=== PATIENT | female | born 1985 | race Two or more races ===

== ENCOUNTER 2025-06-21 10:26 | Outpatient (CLI) | payer OTHER, MEDICAID, SELFPAY ==
[2025-06-21] VITALS (33 sets, daily range): BP systolic 110–151; BP diastolic 58–94; PULSE 74–117; RESP 16–99; TEMP 37.1; O2SAT 91–100; BMI 40.1
--- NOTE | 2025-06-21 10:58 | XR_ITS ---
Examination: Biophysical profile, ultrasound Date and time of exam: June 21, 2025, 1135 hours INDICATIONS: Diagnosis hypertension, decreased movement today Technique: Multiple transabdominal sonographic images of the pelvis abdomen obtained. Attention is directed to the breathing movement, gross body movement, amniotic fluid volume and tone. Findings: Amniotic fluid index 11.2 cm Total biophysical profile is 8 of 8. breathing movement is 2. Gross body movement is 2. tone is 2. Qualitative amniotic fluid volume is 2 Impression: Biophysical profile is 8 of 8.
[2025-06-21 11:35] LABS: Collection Type, Urine Clean Catch
[2025-06-21 11:41] LABS: Bilirubin,Urine Negative (Negative); Blood,Urine Negative (Negative); Clarity,Urine Clear (Clear/Hazy); Color,Urine Lt-Yellow (Lt Yel-Yel); Glucose, Urine Negative (Negative); Ketones,Urine Negative (Negative); Leukocyte Esterase,Urine Negative (Negative); Nitrite,Urine Negative (Negative); PH,Urine 6.0 (5.0-7.0); Protein,Urine Negative (Neg - Trace); RBC,Urine 1 /hpf (0-3); Specific Gravity,Urine 1.005 (1.001-1.035); Squamous Epithelial Cell,Urine 2 /hpf (0-5); Urobilinogen,Urine Negative mg/dL (0.0-1.0); WBC,Urine < 1 /hpf (0-5)
[2025-06-21 11:54] LABS: Creatinine,Random Urine 25 mg/dL (30-125); Protein Total, Random Urine < 6 mg/dL (1-14)
[2025-06-21 12:37] LABS: INR 1.0 (0.9-1.3); Partial Thromboplastin Time 26.8 Seconds (22.0-36.0); Prothrombin Time 10.6 Seconds (9.0-12.2)
[2025-06-21 12:48] LABS: Fibrinogen 637 mg/dL (175-375)
[2025-06-21 12:49] LABS: Alanine Aminotransferase 10 U/L (10-49); Albumin, Serum 4.1 gm/dL (3.5-5.0); Albumin/Globulin Ratio 1.7 (1.2-2.2); Alkaline Phosphatase 104 U/L (46-116); Anion Gap 9 (7-16); Aspartate Amino Transferase 19 U/L (0-34); BUN/Creatinine Ratio 10 Ratio (12-20); Bilirubin,Total 0.3 mg/dL (0.3-1.2); Blood Urea Nitrogen 5 mg/dL (9-23); Calcium 10.5 mg/dL (8.3-10.6); Calcium (Corrected) 10.5 mg/dL (8.5-10.1); Carbon Dioxide 24.6 mMol/L (20.0-31.0); Chloride 102 mMol/L (98-107); Creatinine (Component) 0.5 mg/dL (0.6-1.3); Estimated Creatinine Clearance 198.9 mL/min (>60); Globulin 2.4 gm/dL (2.3-3.5); Glucose 87 mg/dL (74-106); Osmolality,Calculated 268 (275-295); Potassium 3.7 mMol/L (3.4-5.1); Sodium 136 mMol/L (136-145); Total Protein 6.5 gm/dL (5.7-8.2); Uric Acid 3.1 mg/dL (3.1-7.8); eGFR > 60 See Note
[2025-06-21 13:00] LABS: LDH (Lactate Dehydrogenase) 150 U/L (120-246)
[2025-06-21 13:05] LABS: Basophils # (Auto) 0.0 Thou/mm3 (0.0-0.2); Basophils % (Auto) 0 % (0-2.5); Eosinophils # (Auto) 0.2 Thou/mm3 (0.0-0.5); Eosinophils % (Auto) 2 % (0-10); Lymphocytes % (Auto) 15 % (10-50); Mean Corpuscular HGB Conc 31.3 g/dl (31.0-37.0); Neutrophils % (Auto) 77 % (37-80); Nucleated Red Blood Cell # 0.00 Thou/mm3 (0.00-0.00); Nucleated Red Blood Cell % 0 /100 WBC (0)
[2025-06-21 13:06] LABS: Hematocrit 33.6 % (36.0-46.0); Hemoglobin 10.5 g/dL (12.0-16.0); Immature Granulocytes Auto 0.07 Thou/mm3 (0.00-0.00); Lymphocytes # (Auto) 1.5 Thou/mm3 (1.0-4.8); Mean Corpuscular Hemoglobin 21.2 pg (25.0-35.0); Mean Corpuscular Volume 68 fL (80-100); Monocytes # (Auto) 0.6 Thou/mm3 (0.0-0.8); Monocytes % (Auto) 6 % (0-12); Neutrophils # (Auto) 7.8 Thou/mm3 (1.8-7.7); Platelet Count 206 Thou/mm3 (140-440); RDW Standard Deviation 40.8 fL (36.4-46.3); Red Blood Count 4.95 Miln/mm3 (4.00-5.20); White Blood Count 10.2 Thou/mm3 (3.6-11.0)
== END 2025-06-21 13:39 | disposition home or self-care (01) ==
LOC: S4S1 10:28 → S4SX 10:29
PROVIDERS: Referring Provider Specialist; Visit Provider Specialist
DX: O36.8130 Decreased fetal movements, third trimester, not applicable or unspecified (principal); Z3A.29 29 weeks gestation of pregnancy
CPT/HCPCS: 36415; 59025; 76819; 80053; 81001; 82570; 83615; 84156; 84550; 85025; 85384; 85610; 85730